=== PATIENT | male | born 1975 | race Caucasian/White ===

== ENCOUNTER 2016-06-29 16:48 | Emergency (ER) | payer OTHER ==
[~2016-06-29] VITALS: Ht 182.9 cm; Wt 122.5 kg
[~2016-06-29 16:48] MED LIST: METF-303; SIMV20TA6 PO
[2016-06-29 16:50] VITALS: BP_SYST 136
--- NOTE | 2016-06-29 16:55 | NUR ---
Stable condition, alert and oriented x4. States right pinky finger has been swollen red and painful since Tuesday along with redness to right hand. Also states that middle left toe has been swollen and red for a "couple weeks", denies pain to area. Right pinky finger appears swollen and red, redness noted in line-like formations to right hand/wrist. Left middle toe appears swollen and red. Capillary refill to bilateral hands and feet present, sensation present, no numbness or tingling, able to wiggle all fingers and toes freely. No other complaints/injuries per patient or noted.
[2016-06-29] MEDS ORDERED: CEFAZOLIN 1 GM IVPB PREMIX 50 ML IV ONE (17:00)
[2016-06-29] MEDS ORDERED: KETOROLAC TROMETHAMINE 30 MG VIAL IVP ONE (17:00)
[2016-06-29] MEDS ORDERED: ONDANSETRON HCL 4 MG/2 ML VIAL IVP ONE (17:00)
--- NOTE | 2016-06-29 17:00 | NUR ---
Patient to ER bed 07 to gown for evaluation. Side rails up.
--- NOTE | 2016-06-29 17:05 | NUR ---
Jenny CARNEY at bedside.
[2016-06-29 17:25] LABS: HEMOGLOBIN 14.2 g/dL (14.0-18.0); LYMPHOCYTES # (AUTO) 1.3 K/uL (1.0-5.5); MEAN CORPUSCULAR HEMOGLOBIN 29 pg (27-31); MONOCYTES # (AUTO) 0.8 K/uL (0.0-1.0); NEUTROPHILS # (AUTO) 4.5 K/uL (1.8-7.7)
[2016-06-29 17:28] LABS: BASOPHILS # (AUTO) 0.2 K/uL (0.0-0.2); BASOPHILS % (AUTO) 2.5 % (0.0-2.0); EOSINOPHILS % (AUTO) 0.3 % (0.0-4.0); HEMATOCRIT 41.5 % (36-54); LYMPHOCYTES % (AUTO) 18.4 % (20.5-51.5); MEAN CORPUSCULAR HGB CONC 34 % (32-36); MEAN CORPUSCULAR VOLUME 86 fL (79.0-98.0); MONOCYTES % (AUTO) 11.5 % (1.7-9.3); NEUTROPHILS % (AUTO) 67.3 % (40.0-70.0); PLATELET COUNT (AUTO) 204 K/uL (130-430); RED BLOOD CELL COUNT(AUTO) 4.85 MIL/uL (4.2-6.2); RED CELL DISTRIBUTION WIDTH 12.2 % (9.0-15.0); WHITE BLOOD COUNT (AUTO) 6.8 K/uL (4.8-10.8)
[2016-06-29] MEDS ORDERED: KETOROLAC TROMETHAMINE 30 MG VIAL ONE (17:31)
[2016-06-29 17:39] LABS: CREATININE 1.26 mg/dL (0.55-1.30); POTASSIUM 3.8 mmol/L (3.5-5.1)
[2016-06-29 17:43] LABS: ALBUMIN 4.2 g/dL (3.4-4.8); TOTAL BILIRUBIN 1.5 mg/dL (0.0-1.0); TOTAL PROTEIN, SERUM 7.8 g/dL (6.4-8.3)
--- NOTE | 2016-06-29 17:50 | NUR ---
Amarilis GI[employer] REPAIRER aware that patient refused zofran
--- NOTE | 2016-06-29 18:10 | NUR ---
Patient given written and verbal discharge instructions and verbalizes understanding. ER MD discussed with patient the results and treatment provided.Patient in stable condition. ID arm band removed. IV catheter removed intact and dressing applied, no active bleeding. Rx of Bactrim, Keflex and Motrin given. Patient educated on pain management and to follow up with PMD within 2 days. Opportunity for questions provided and answered.
[2016-06-29 18:15] VITALS: BP_SYST 130
== END 2016-06-29 18:15 | disposition home or self-care (01) ==
LOC: SED 16:48
DX: L03.113 Cellulitis of right upper limb (principal); E11.9 Type 2 diabetes mellitus without complications; E78.00 Pure hypercholesterolemia, unspecified
CPT/HCPCS: 36415; 73130; 80053; 85025; 87040; 96365; 96375; 99285; J0690; J1885; J2405

== ENCOUNTER 2018-04-01 07:56 | Emergency (ER) | payer OTHER ==
[~2018-04-01] VITALS: Ht 188 cm; Wt 122.5 kg
[~2018-04-01 07:56] MED LIST changes: -METF-303; +METF500T6
[2018-04-01 08:01] VITALS: BP_SYST 144
[2018-04-01] MEDS ORDERED: DEXAMETHASONE SOD PHOSPHATE 10 MG/ML VIAL IM ONE (08:15)
[2018-04-01] MEDS ORDERED: KETOROLAC TROMETHAMINE 60 MG/2 ML VIAL IM ONE (08:15)
[2018-04-01 09:06] LABS: BASOPHILS % (AUTO) 0.7 % (0.0-2.0); EOSINOPHILS # (AUTO) 0.1 K/uL (0.0-0.4); EOSINOPHILS % (AUTO) 1.4 % (0.0-4.0); HEMATOCRIT 44.1 % (36-54); HEMOGLOBIN 14.7 g/dL (14.0-18.0); LYMPHOCYTES % (AUTO) 17.9 % (20.5-51.5); MEAN CORPUSCULAR HEMOGLOBIN 29 pg (27-31); MEAN CORPUSCULAR HGB CONC 33 % (32-36); MEAN CORPUSCULAR VOLUME 86 fL (79.0-98.0); MONOCYTES # (AUTO) 0.4 K/uL (0.0-1.0); MONOCYTES % (AUTO) 7.2 % (1.7-9.3); NEUTROPHILS # (AUTO) 4.3 K/uL (1.8-7.7); NEUTROPHILS % (AUTO) 72.8 % (40.0-70.0); PLATELET COUNT (AUTO) 232 K/uL (130-430); RED BLOOD CELL COUNT(AUTO) 5.15 MIL/uL (4.2-6.2); RED CELL DISTRIBUTION WIDTH 12.6 % (9.0-15.0); WHITE BLOOD COUNT (AUTO) 5.8 K/uL (4.8-10.8)
[2018-04-01 09:15] LABS: CALCIUM 9.4 mg/dL (8.4-11.0); CREATININE 1.03 mg/dL (0.55-1.30); POTASSIUM 4.1 mmol/L (3.5-5.1)
[2018-04-01 09:17] LABS: ALBUMIN 3.7 g/dL (3.4-4.8); TOTAL BILIRUBIN 1.2 mg/dL (0.0-1.0)
[2018-04-01] MEDS ORDERED: MORPHINE 4 MG/ML INJ. SYRINGE IM ONE (09:30)
[2018-04-01 10:17] VITALS: BP_SYST 140
== END 2018-04-01 10:02 | disposition home or self-care (01) ==
LOC: SED 07:56
DX: M54.40 Lumbago with sciatica, unspecified side (principal); G89.29 Other chronic pain; E11.9 Type 2 diabetes mellitus without complications; E78.00 Pure hypercholesterolemia, unspecified; Z90.89 Acquired absence of other organs
CPT/HCPCS: 36415; 72100; 80053; 82962; 85025; 96372; 99284; J1100; J1885; J2270

== ENCOUNTER 2023-08-18 15:34 | Inpatient (IN) | payer BC ==
[~2023-08-18] VITALS: Ht 182.9 cm; Wt 111.1 kg
[~2023-08-18 15:34] MED LIST changes: +ACET-2634 PO; +CEPH-548 PO; +DICL20GE TP; +METF-379; -METF500T6; +METH-634 PO; +NAPR-1172 PO; +NEU300 PO; +SIMV-43 PO; -SIMV20TA6 PO; +TRAM50TA PO
[2023-08-18 15:35] VITALS: BP_SYST 155; PULSE 70; RESP 20; TEMP 98.2; O2SAT 97
[2023-08-18] MEDS: MORPHINE 4 MG INJ. 4 MG/ML VIAL IVP ONE (16:23)
[2023-08-18] MEDS: ONDANSETRON HCL 4 MG/2 ML VIAL IVP ONE (16:24)
[2023-08-18] MEDS: LORazepam 2 MG/ML VIAL IVP ONE (16:24)
[2023-08-18] MEDS ORDERED: HYDROmorphone 1 MG/ML INJ. CARTRIDGE ONE (16:51)
[2023-08-18] MEDS: HYDROmorphone 2 MG/ML VIAL IVP ONE (17:02)
[2023-08-18] MEDS ORDERED: GABAPENTIN 300 MG CAPSULE PO PRN (17:45)
[2023-08-18] MEDS ORDERED: hydrALAZINE HCL 20 MG/ML VIAL IVP PRN (17:45)
[2023-08-18] MEDS ORDERED: ACETAMINOPHEN 325 MG TABLET PO PRN ×2 (17:45→18:00)
[2023-08-18] MEDS ORDERED: ONDANSETRON HCL 4 MG/2 ML VIAL IVP PRN (17:45)
[2023-08-18 18:01] LABS: BASOPHILS # (AUTO) 0.1 K/uL (0.0-0.2); EOSINOPHILS % (AUTO) 0.1 % (0.0-4.0); HEMATOCRIT 42.4 % (36-54); HEMOGLOBIN 15.1 g/dL (14.0-18.0); LYMPHOCYTES % (AUTO) 13.7 % (20.5-51.5); MEAN CORPUSCULAR HEMOGLOBIN 31 pg (27-31); MEAN CORPUSCULAR HGB CONC 36 % (32-36); MEAN CORPUSCULAR VOLUME 87 fL (79.0-98.0); MONOCYTES # (AUTO) 0.4 K/uL (0.0-1.0); MONOCYTES % (AUTO) 5.1 % (1.7-9.3); NEUTROPHILS % (AUTO) 80.1 % (40.0-70.0); PLATELET COUNT (AUTO) 262 K/uL (130-430); RED BLOOD CELL COUNT(AUTO) 4.88 MIL/uL (4.2-6.2); RED CELL DISTRIBUTION WIDTH 12.6 % (9.0-15.0); WHITE BLOOD COUNT (AUTO) 7.5 K/uL (4.8-10.8)
[2023-08-18 18:12] LABS: CALCIUM 8.8 mg/dL (8.4-11.0); CREATININE 1.12 mg/dL (0.55-1.30); POTASSIUM 4.3 mmol/L (3.5-5.1)
[2023-08-18] MEDS ORDERED: METH-776 PO (18:12)
[2023-08-18] MEDS: GABAPENTIN 300 MG CAPSULE PO ONE (18:37)
[2023-08-18] MEDS ORDERED: GABAPENTIN 300 MG CAPSULE ONE (18:39)
[2023-08-18] MEDS: BACLOFEN 10 MG TABLET PO ONE (19:11)
[2023-08-18 20:00] VITALS: BP_SYST 151; PULSE 68; RESP 18; TEMP 97.5; O2SAT 95
[2023-08-18] MEDS: BACLOFEN 10 MG TABLET PO SCH (20:35)
[2023-08-18] MEDS: GABAPENTIN 300 MG CAPSULE PO SCH (20:35)
[2023-08-18] MEDS: HYDROcodone/ACETAMIN 5-325 MG TAB (NORCO/ VICODIN) PO PRN (21:52)
[2023-08-19 01:16] VITALS: BP_SYST 122; PULSE 60; RESP 18; TEMP 96.8; O2SAT 95
[2023-08-19 03:59] LABS: BASOPHILS # (AUTO) 0.1 K/uL (0.0-0.2); BASOPHILS % (AUTO) 0.9 % (0.0-2.0); EOSINOPHILS # (AUTO) 0.1 K/uL (0.0-0.4); EOSINOPHILS % (AUTO) 1.4 % (0.0-4.0); HEMATOCRIT 40.3 % (36-54); HEMOGLOBIN 14.2 g/dL (14.0-18.0); LYMPHOCYTES # (AUTO) 2.2 K/uL (1.0-5.5); LYMPHOCYTES % (AUTO) 33.6 % (20.5-51.5); MEAN CORPUSCULAR HEMOGLOBIN 31 pg (27-31); MEAN CORPUSCULAR HGB CONC 35 % (32-36); MEAN CORPUSCULAR VOLUME 88 fL (79.0-98.0); MONOCYTES # (AUTO) 0.8 K/uL (0.0-1.0); MONOCYTES % (AUTO) 12.2 % (1.7-9.3); NEUTROPHILS # (AUTO) 3.3 K/uL (1.8-7.7); NEUTROPHILS % (AUTO) 51.9 % (40.0-70.0); PLATELET COUNT (AUTO) 254 K/uL (130-430); RED BLOOD CELL COUNT(AUTO) 4.59 MIL/uL (4.2-6.2); RED CELL DISTRIBUTION WIDTH 12.8 % (9.0-15.0); WHITE BLOOD COUNT (AUTO) 6.4 K/uL (4.8-10.8)
[2023-08-19 04:20] LABS: ALBUMIN 3.4 g/dL (3.4-4.8); CALCIUM 8.8 mg/dL (8.4-11.0); CREATININE 1.31 mg/dL (0.55-1.30); POTASSIUM 3.8 mmol/L (3.5-5.1); TOTAL PROTEIN, SERUM 6.5 g/dL (6.4-8.3)
[2023-08-19 05:00] VITALS: BP_SYST 129; PULSE 58; RESP 16; TEMP 97.9; O2SAT 97
[2023-08-19] MEDS: HYDROcodone/ACETAMIN 10-325 MG TAB PO PRN (06:03)
[2023-08-19] MEDS: MORPHINE 2 MG/ML INJ. SYRINGE IVP PRN (07:00)
[2023-08-19 08:00] VITALS: O2SAT 99
[2023-08-19] MEDS: SIMVASTATIN 20 MG TABLET PO SCH (09:23)
[2023-08-19] MEDS: NACL 0.9% 1,000 ML IV SCH (10:15)
[2023-08-19] MEDS ORDERED: GLUCOSE (DEXTROSE) ORAL GEL -Adults PO PRN (11:45)
[2023-08-19] MEDS ORDERED: DEXTROSE 50% JECT 50 ML DISP.SYRIN IVP PRN (11:45)
[2023-08-19] MEDS: DEXAMETHASONE SOD PHOSPHATE 10 MG/ML VIAL IVP ONE (12:03)
[2023-08-19 12:33] VITALS: BP_SYST 131; PULSE 52; RESP 20; TEMP 98.4; O2SAT 96
[2023-08-19] MEDS ORDERED: METF-379 PO (13:33)
[2023-08-19] MEDS ORDERED: ATOR40TA68 PO (13:33)
[2023-08-19] MEDS ORDERED: ASPI-859 PO (13:33)
[2023-08-19 16:11] VITALS: BP_SYST 136; PULSE 62; RESP 16; TEMP 98.4; O2SAT 95
[2023-08-19] MEDS: INSULIN REGULAR, HUMAN 100 UNITS/ML, 3 ML VIAL (humuLIN R) SUBCUT PRN (17:02)
[2023-08-19 20:00] VITALS: BP_SYST 137; PULSE 71; RESP 18; TEMP 97.1; O2SAT 96
[2023-08-19 21:34] LABS: BILIRUBIN,URINE NEGATIVE (NEGATIVE); BLOOD, URINE NEGATIVE (NEGATIVE); CLARITY/URINE CLEAR (CLEAR); COLOR,URINE YELLOW (YELLOW); GLUCOSE,URINE 2+ (NEGATIVE); KETONES,URINE NEGATIVE (NEGATIVE); LEUKOCYTE ESTERASE ,URINE NEGATIVE (NEGATIVE); NITRITE, URINE NEGATIVE (NEGATIVE); PROTEIN URINE NEGATIVE (NEGATIVE); UROBILINOGEN,URINE 0.2 (0.2-1.0)
[2023-08-20 00:55] VITALS: BP_SYST 126; PULSE 71; RESP 18; TEMP 97.6; O2SAT 100
[2023-08-20 08:00] VITALS: BP_SYST 147; PULSE 70; RESP 18; TEMP 98.2; O2SAT 98
[2023-08-20] MEDS: ASPIRIN 81 MG TABLET(ECOTRIN) PO SCH (09:09)
[2023-08-20] MEDS: DEXAMETHASONE SOD PHOSPHATE 4 MG/ML VIAL IVP SCH (09:09)
[2023-08-20] MEDS: tiZANidine HCL 4 MG TABLET PO SCH (09:21)
[2023-08-20] MEDS: ATORVASTATIN 20 MG TABLET PO SCH (09:21)
[2023-08-20 09:26] VITALS: O2SAT 98
[2023-08-20 09:38] LABS: BASOPHILS # (AUTO) 0.1 K/uL (0.0-0.2); BASOPHILS % (AUTO) 0.7 % (0.0-2.0); EOSINOPHILS % (AUTO) 0.4 % (0.0-4.0); HEMATOCRIT 44.2 % (36-54); HEMOGLOBIN 15.6 g/dL (14.0-18.0); LYMPHOCYTES # (AUTO) 2.2 K/uL (1.0-5.5); LYMPHOCYTES % (AUTO) 25.1 % (20.5-51.5); MEAN CORPUSCULAR HEMOGLOBIN 31 pg (27-31); MEAN CORPUSCULAR HGB CONC 35 % (32-36); MEAN CORPUSCULAR VOLUME 88 fL (79.0-98.0); MONOCYTES # (AUTO) 0.9 K/uL (0.0-1.0); MONOCYTES % (AUTO) 10.8 % (1.7-9.3); NEUTROPHILS # (AUTO) 5.4 K/uL (1.8-7.7); PLATELET COUNT (AUTO) 262 K/uL (130-430); RED BLOOD CELL COUNT(AUTO) 5.04 MIL/uL (4.2-6.2); RED CELL DISTRIBUTION WIDTH 12.6 % (9.0-15.0)
[2023-08-20 09:43] LABS: WHITE BLOOD COUNT (AUTO) 8.6 K/uL (4.8-10.8)
[2023-08-20 10:05] LABS: ALBUMIN 3.7 g/dL (3.4-4.8); CREATININE 1.13 mg/dL (0.55-1.30); POTASSIUM 3.8 mmol/L (3.5-5.1); TOTAL PROTEIN, SERUM 7.2 g/dL (6.4-8.3)
[2023-08-20] MEDS: POLYETHYLENE GLYCOL 3350, 17 GM/ POWD.PACK PO ONE (10:45)
[2023-08-20] MEDS: DOCUSATE SODIUM 100 MG CAPSULE PO ONE (12:16)
[2023-08-20 17:01] VITALS: BP_SYST 123; PULSE 75; RESP 18; TEMP 97.9; O2SAT 99
[2023-08-20 20:00] VITALS: BP_SYST 135; PULSE 78; RESP 20; TEMP 98.2; O2SAT 95; O2SAT 96
[2023-08-20] MEDS: DOCUSATE SODIUM 100 MG CAPSULE PO SCH (21:18)
[2023-08-21] VITALS (7 sets, daily range): BP systolic 122–143; PULSE 52–78; RESP 16–20; TEMP 97.5–98.4; O2SAT 95–98
[2023-08-21 07:14] LABS: ALBUMIN 3.2 g/dL (3.4-4.8); CALCIUM 8.5 mg/dL (8.4-11.0); CREATININE 1.19 mg/dL (0.55-1.30); TOTAL BILIRUBIN 0.7 mg/dL (0.0-1.0); TOTAL PROTEIN, SERUM 6.1 g/dL (6.4-8.3)
[2023-08-21 07:58] LABS: BASOPHILS % (AUTO) 0.6 % (0.0-2.0); EOSINOPHILS # (AUTO) 0.1 K/uL (0.0-0.4); EOSINOPHILS % (AUTO) 1.3 % (0.0-4.0); HEMATOCRIT 39.4 % (36-54); HEMOGLOBIN 13.8 g/dL (14.0-18.0); LYMPHOCYTES # (AUTO) 2.5 K/uL (1.0-5.5); LYMPHOCYTES % (AUTO) 38.1 % (20.5-51.5); MEAN CORPUSCULAR HEMOGLOBIN 31 pg (27-31); MEAN CORPUSCULAR HGB CONC 35 % (32-36); MEAN CORPUSCULAR VOLUME 88 fL (79.0-98.0); MONOCYTES # (AUTO) 0.7 K/uL (0.0-1.0); MONOCYTES % (AUTO) 9.9 % (1.7-9.3); NEUTROPHILS # (AUTO) 3.3 K/uL (1.8-7.7); NEUTROPHILS % (AUTO) 50.1 % (40.0-70.0); PLATELET COUNT (AUTO) 237 K/uL (130-430); RED BLOOD CELL COUNT(AUTO) 4.45 MIL/uL (4.2-6.2); RED CELL DISTRIBUTION WIDTH 12.9 % (9.0-15.0); WHITE BLOOD COUNT (AUTO) 6.6 K/uL (4.8-10.8)
[2023-08-21] MEDS ORDERED: POLYETHYLENE GLYCOL 3350, 17 GM/ POWD.PACK PO SCH (09:00)
[2023-08-21] MEDS ORDERED: BISACODYL 10 MG/SUPPOSITORY RC PRN (14:30)
[2023-08-22] VITALS: BP_SYST 112; PULSE 42; RESP 16; TEMP 97.7; O2SAT 95
[2023-08-22 07:15] LABS: BASOPHILS # (AUTO) 0.1 K/uL (0.0-0.2); BASOPHILS % (AUTO) 0.9 % (0.0-2.0); EOSINOPHILS # (AUTO) 0.1 K/uL (0.0-0.4); EOSINOPHILS % (AUTO) 1.2 % (0.0-4.0); HEMATOCRIT 40.7 % (36-54); HEMOGLOBIN 14.2 g/dL (14.0-18.0); LYMPHOCYTES # (AUTO) 2.6 K/uL (1.0-5.5); LYMPHOCYTES % (AUTO) 34.8 % (20.5-51.5); MEAN CORPUSCULAR HEMOGLOBIN 31 pg (27-31); MEAN CORPUSCULAR HGB CONC 35 % (32-36); MEAN CORPUSCULAR VOLUME 88 fL (79.0-98.0); MONOCYTES # (AUTO) 0.8 K/uL (0.0-1.0); MONOCYTES % (AUTO) 10.7 % (1.7-9.3); NEUTROPHILS % (AUTO) 52.4 % (40.0-70.0); PLATELET COUNT (AUTO) 248 K/uL (130-430); RED BLOOD CELL COUNT(AUTO) 4.63 MIL/uL (4.2-6.2); RED CELL DISTRIBUTION WIDTH 12.8 % (9.0-15.0); WHITE BLOOD COUNT (AUTO) 7.5 K/uL (4.8-10.8)
[2023-08-22 07:27] LABS: ALBUMIN 3.5 g/dL (3.4-4.8); CALCIUM 9.2 mg/dL (8.4-11.0); CREATININE 1.27 mg/dL (0.55-1.30); POTASSIUM 4.3 mmol/L (3.5-5.1); TOTAL PROTEIN, SERUM 6.6 g/dL (6.4-8.3)
[2023-08-22 08:00] VITALS: BP_SYST 136; PULSE 59; RESP 20; TEMP 97.7; O2SAT 99
[2023-08-22 09:10] VITALS: O2SAT 99
[2023-08-22] MEDS ORDERED: DOCU-144 PO (10:06)
[2023-08-22] MEDS ORDERED: HYDR-3919 PO (10:06)
[2023-08-22] MEDS ORDERED: HYDR-3927 PO (10:06)
[2023-08-22] MEDS ORDERED: ZAN4 PO (10:06)
[2023-08-22] MEDS ORDERED: NEU300 PO (10:06)
[2023-08-22 12:48] VITALS: BP_SYST 133; PULSE 98; RESP 19; TEMP 98.7; O2SAT 98
== END 2023-08-22 16:50 | disposition home health service (06) | DRG 552 ==
LOC: SED 15:34 → SMU 17:32 → OBSVTOIN 08-21
PROVIDERS: ADMIT Family Medicine; ATTEND Family Medicine
DX: M48.061 Spinal stenosis, lumbar region without neurogenic claudication (principal); M54.16 Radiculopathy, lumbar region; E78.5 Hyperlipidemia, unspecified; E11.65 Type 2 diabetes mellitus with hyperglycemia; K59.00 Constipation, unspecified; T38.0X5A Adverse effect of glucocorticoids and synthetic analogues, initial encounter; Z79.899 Other long term (current) drug therapy; Z79.84 Long term (current) use of oral hypoglycemic drugs; Y92.89 Other specified places as the place of occurrence of the external cause; M54.30 Sciatica, unspecified side
CPT/HCPCS: 36415; 80048; 80053; 81001; 81003; 82948; 83037; 85025; 96374; 96375; 97110-GP; 97116-GP; 97530-GP; 99285; G0378; J1100; J1170; J1815; J2060; J2270; J2405